=== PATIENT | male | born 1955 | race Caucasian/White ===

== ENCOUNTER → 2017-02-05 | Outpatient (CLI) | payer OTHER ==
[~2017-02-05] MED LIST: ASPI325T4 PO; ATOR20TA PO; CARV6.252 PO; HYDR25TA6 PO; INSU100V8 SQ; LIRA0.6P SQ; METF10002 PO; OMEP-110 PO; PIOG15TA9 PO; QUIN40TA7 PO; TERA1CAP3 PO
== END | disposition home or self-care (01) ==
LOC: CFH 08:54
PROVIDERS: ATTEND Internal Medicine Endocrinology, Diabetes & Metabolism
DX: E04.1 Nontoxic single thyroid nodule (principal)
CPT/HCPCS: 76536

== ENCOUNTER → 2017-04-12 | Outpatient (CLI) | payer OTHER | END | disposition home or self-care (01) | LOC: PETCFH 09:19 | PROVIDERS: ATTEND Internal Medicine Critical Care Medicine | DX: C41.9 Malignant neoplasm of bone and articular cartilage, unspecified (principal); K57.30 Diverticulosis of large intestine without perforation or abscess without bleeding; I25.10 Atherosclerotic heart disease of native coronary artery without angina pectoris; Z98.890 Other specified postprocedural states | CPT/HCPCS: 78815; A9552 ==

== ENCOUNTER → 2017-05-02 | Outpatient (CLI) | payer OTHER ==
[~2017-05-02] MED LIST changes: +ASPI325T17 PO; -ASPI325T4 PO; +PIOG15TA22 PO; -PIOG15TA9 PO
== END | disposition home or self-care (01) ==
LOC: CVU 14:40
PROVIDERS: ATTEND Internal Medicine Critical Care Medicine
DX: I11.0 Hypertensive heart disease with heart failure (principal); I50.30 Unspecified diastolic (congestive) heart failure; C05.9 Malignant neoplasm of palate, unspecified; Z92.21 Personal history of antineoplastic chemotherapy
CPT/HCPCS: C8929

== ENCOUNTER 2018-07-24 13:42 | Day surgery (SDC) | payer OTHER ==
[~2018-07-24] VITALS: Ht 188 cm; Wt 120.1 kg
[~2018-07-24 13:42] MED LIST changes: +QUIN40TA15 PO; -QUIN40TA7 PO
[2018-07-24] MEDS ORDERED: LACTATED RINGERS 1,000 ML IV SCH (14:06)
[2018-07-24 14:10] VITALS: BP 143/78
[2018-07-24] MEDS ORDERED: PROPOFOL 10 MG/ML, 20ML ONE (14:24)
[2018-07-24] MEDS ORDERED: FENTANYL PF 100 MCG/2ML IV PRN (14:30)
[2018-07-24] MEDS ORDERED: LABETALOL 5MG/ML, 20ML IV PRN (14:30)
[2018-07-24] MEDS ORDERED: KETOROLAC 30 MG/1 ML IV PRN (14:30)
[2018-07-24] MEDS ORDERED: hydrALAzine 20 MG/ML, 1ML IV PRN (14:30)
[2018-07-24] MEDS ORDERED: ACETAMINOPHEN 325 MG TABLET PO PRN (14:30)
[2018-07-24] MEDS ORDERED: METOCLOPRAMIDE 5 MG/ML, 2ML IV PRN (14:30)
[2018-07-24] MEDS ORDERED: DIAZEPAM 5 MG/ML, 2ML IVPush PRN (14:30)
[2018-07-24 14:33] VITALS: BP 143/78
[2018-07-24] MEDS ORDERED: OFLOXACIN EAR DROPS 0.3%, 5ML ONE (14:44)
[2018-07-24 14:54] LABS: ALANINE AMINOTRANSFERASE 27 U/L (12-78); ALBUMIN 4.1 g/dL (3.4-5.0); ANION GAP 8 mmol/L (5-15); CALCIUM 8.4 mg/dL (8.5-10.1); CHLORIDE 101 mmol/L (98-107); CREATININE 1.08 mg/dL (0.7-1.3)
[2018-07-24 14:56] LABS: ALKALINE PHOSPHATASE 61 U/L (45-117); BILIRUBIN,TOTAL 0.6 mg/dL (0.2-1.0); TOTAL PROTEIN 7.5 g/dL (6.4-8.2)
== END 2018-07-24 16:30 | disposition home or self-care (01) ==
LOC: OUT 13:42
PROVIDERS: ATTEND Otolaryngology
DX: H65.92 Unspecified nonsuppurative otitis media, left ear (principal); I25.10 Atherosclerotic heart disease of native coronary artery without angina pectoris; I11.0 Hypertensive heart disease with heart failure; I50.9 Heart failure, unspecified; E11.9 Type 2 diabetes mellitus without complications; J45.909 Unspecified asthma, uncomplicated; E78.5 Hyperlipidemia, unspecified; Z85.830 Personal history of malignant neoplasm of bone; Z79.899 Other long term (current) drug therapy; Z79.82 Long term (current) use of aspirin; Z79.4 Long term (current) use of insulin
CPT/HCPCS: 36415; 69436; 80053; 82962; 93005; J2704

== ENCOUNTER 2019-10-06 11:35 | Day surgery (SDC) | payer OTHER ==
[~2019-10-06] VITALS: Ht 188 cm; Wt 124.5 kg
[2019-10-06] MEDS ORDERED: LACTATED RINGERS 1,000 ML IV SCH (12:03)
[2019-10-06 12:07] VITALS: BP 184/86
[2019-10-06] MEDS ORDERED: OFLOXACIN OPHTH 0.3%, 5ML ONE (12:23)
[2019-10-06 12:45] LABS: ALANINE AMINOTRANSFERASE 21 U/L (12-78); ALBUMIN 3.9 g/dL (3.4-5.0); ANION GAP 4 mmol/L (5-15); CALCIUM 8.7 mg/dL (8.5-10.1); CHLORIDE 109 mmol/L (98-107); CREATININE 0.96 mg/dL (0.7-1.3)
[2019-10-06 12:48] LABS: ALKALINE PHOSPHATASE 52 U/L (45-117); BILIRUBIN,TOTAL 0.7 mg/dL (0.2-1.0); TOTAL PROTEIN 7.1 g/dL (6.4-8.2)
[2019-10-06] MEDS ORDERED: PROPOFOL 10 MG/ML, 20ML ONE (13:18)
== END 2019-10-06 14:50 | disposition home or self-care (01) ==
LOC: OUT 11:35
PROVIDERS: ATTEND Otolaryngology
DX: H66.12 Chronic tubotympanic suppurative otitis media, left ear (principal); H90.12 Conductive hearing loss, unilateral, left ear, with unrestricted hearing on the contralateral side; Z79.899 Other long term (current) drug therapy; Z88.0 Allergy status to penicillin
CPT/HCPCS: 36415; 69436; 80053; 82962; 93005; J2704; J7120

== ENCOUNTER 2019-12-30 17:01 | Inpatient (IN) | payer OTHER ==
[~2019-12-30] VITALS: Ht 188 cm; Wt 123.5 kg
[2019-12-30] MEDS ORDERED: HYDROmorphone 1 MG/ML, 1ML INJ ONE ×2 (17:11→17:50)
[2019-12-30] MEDS ORDERED: ONDANSETRON 2MG/ML, 2ML ONE ×2 (17:15→19:30)
[2019-12-30 17:26] LABS: BASOPHILS # (AUTO) 0.03 x10^3/uL (0-0.1); BASOPHILS % (AUTO) 1 % (0-1); EOSINOPHILS # (AUTO) 0.16 x10^3/uL (0-0.4); EOSINOPHILS % (AUTO) 2 % (1-7); LYMPHOCYTES # (AUTO) 1.41 x10^3/uL (1-3.4); LYMPHOCYTES % (AUTO) 20 % (22-44); MD NO; MEAN CORPUSCULAR HEMOGLOBIN 32.2 pg (27.5-34.5); MEAN CORPUSCULAR HGB CONC 33.6 g/dL (33.2-36.2); MEAN CORPUSCULAR VOLUME 95.8 fL (81-97); MONOCYTES # (AUTO) 0.59 x10^3/uL (0.2-0.8); MONOCYTES % (AUTO) 8 % (2-9); NEUTROPHILS # (AUTO) 4.92 x10^3/uL (1.8-6.8); NEUTROPHILS % (AUTO) 69 % (42-75); PLATELET COUNT 201 x10^3/uL (130-400); RED BLOOD COUNT 3.97 x10^6/uL (4.38-5.82); RED CELL DISTRIBUTION WIDTH 13.7 % (9.4-14.8)
[2019-12-30] MEDS ORDERED: ONDANSETRON 2MG/ML, 2ML IVPush ONE ×2 (17:30→19:00)
[2019-12-30] MEDS ORDERED: SODIUM CHLORIDE FLUSH 10ML SYR IVF ONE (17:30)
[2019-12-30] MEDS ORDERED: PLEASE ENTER HEIGHT AND WEIGHT MC SCH (17:30)
--- NOTE | 2019-12-30 17:34 | NUR ---
Bib by Naomi from home after unwitnessed glf resulting in right lateral chest pain/right brow laceration Ems placed c-collar, piv and administered 100mcg of fentanyl with minimal relief On arrival sweating/groaning in pain. Medicated immediately VSS, no gross deficits -loc, - blood thinner
[2019-12-30 17:37] LABS: INTERNATIONAL NORMALIZED RATIO 0.99 (0.93-1.1); PROTHROMBIN TIME 10.5 Seconds (9.6-11.5)
[2019-12-30 17:39] LABS: ALANINE AMINOTRANSFERASE 28 U/L (12-78); ALBUMIN 3.9 g/dL (3.4-5.0); ANION GAP 5 mmol/L (5-15); CALCIUM 8.6 mg/dL (8.5-10.1); CHLORIDE 102 mmol/L (98-107); CREATININE 1.08 mg/dL (0.7-1.3)
[2019-12-30 17:42] LABS: ALKALINE PHOSPHATASE 49 U/L (45-117); BILIRUBIN,TOTAL 0.5 mg/dL (0.2-1.0); TOTAL PROTEIN 6.9 g/dL (6.4-8.2)
--- NOTE | 2019-12-30 17:54 | NUR ---
To ct scan at 1754 Ice placed on expanding right brow hematoma
[2019-12-30] MEDS: HYDROmorphone 1 MG/ML, 1ML INJ IVPush PRN ×2 (17:56→17:58)
--- NOTE | 2019-12-30 18:19 | NUR ---
BACK FROM CT SCAN REMAINS WITH NO NEURO DEFICITS REMAINS IN C COLLAR PAIN IMPROVED TO 2/10 VSS ON 4L NC
[2019-12-30] MEDS ORDERED: OMNIPAQUE 350 MG/ML, 100ML BOTTLE ONE (18:28)
--- NOTE | 2019-12-30 18:50 | NUR ---
ER PROVIDER TO BEDSIDE: C-COLLAR REMOVED, UPDATED PATIENT/FAMILY ON ESTIMATED POC: TO ADMIT FOR PAIN CONTROL VSS ON EDGE FINISHER (4L NC->NARCOTICS?) REPORT TO GEORGIA VALVERDE
[2019-12-30] MEDS ORDERED: HYDROmorphone 2 MG/ML, 1ML IVPush PRN (19:00)
--- NOTE | 2019-12-30 19:27 | NUR ---
Report received from ABRAM Ocampo. This RN to assume care. CT results returned. Awaiting suture procedure.
[2019-12-30] MEDS ORDERED: L.E.T SOLUTION TP ONE ×2 (19:47→20:00)
[2019-12-30] MEDS ORDERED: MORPHINE SULFATE 4 MG/ML, 1ML ONE (19:53)
[2019-12-30] MEDS ORDERED: MORPHINE SULFATE 4 MG/ML, 1ML IVPush ONE (20:00)
[2019-12-30] MEDS ORDERED: DIAZEPAM 5 MG/ML, 2ML IV ONE (21:00)
[2019-12-30] MEDS: QUINAPRIL 20MG TABLET PO SCH (21:00)
[2019-12-30] MEDS: CARVEDILOL 6.25 MG TABLET PO SCH (21:00)
[2019-12-30] MEDS ORDERED: ATORVASTATIN 20 MG TABLET PO SCH (21:00)
[2019-12-30] MEDS ORDERED: BISACODYL 10 MG SUPP PR PRN (21:30)
[2019-12-30] MEDS ORDERED: ACETAMINOPHEN 325 MG TABLET PO PRN (21:30)
[2019-12-30] MEDS ORDERED: morphine SULFATE 10 MG/ML, 1ML IVPush PRN (21:30)
[2019-12-30] MEDS ORDERED: METHOCARBAMOL 500 MG TABLET PO PRN (21:30)
[2019-12-30] MEDS ORDERED: POLYETHYLENE GLYCOL 17 GM PACKET PO PRN (21:30)
[2019-12-30] MEDS ORDERED: DIAZEPAM 5 MG/ML, 2ML ONE (21:40)
--- NOTE | 2019-12-30 23:00 | NUR ---
Report was given to ABRAM Gibson and patient to be transferred to room 360. When tech prepared patient for transport, family and patient stated they did not want to be admitted any longer. Advised patient and family that patient's SPO2 drops to 84-88% on RA. Patient is not on home O2. Family is in healthcare; is a NICU nurse and elen is a PA. They stated they are capable of caring for patient further at home with controlling his pain. They also state they are able to get ahold of an oxygen concentrator for patient to have home O2. Patient and family decided that is the best option for patient. Advised Dagoberto, hospital provider of their decision. He states he does not feel patient is a safe discharge and they can sign out AMA. Patient and family state they do not want to sign out AMA because their insurance will not cover the visit. Dagoberto spoke with patient and family explaining the situation. Patient and family requested rooming house operator. Candace rooming house operator aware and to talk to patient and family.
--- NOTE | 2019-12-31 00:06 | NUR ---
mud analysis supervisor, Candace, here to talk to patient and family.
[2019-12-31] MEDS ORDERED: ONDANSETRON 2MG/ML, 2ML ONE (00:36)
[2019-12-31] MEDS: ONDANSETRON 2MG/ML, 2ML IVPush PRN ×2 (00:40→06:37)
--- NOTE | 2019-12-31 00:51 | NUR ---
battery charger: went in with dr lira to have convo with pt. pt/family decided to stay. Password will be [place] for Miranda and daughter Deb to call and get updates. POC discussed with and pt/family agree to stay. Pt stated to not get any diabetic meds as he will "bottom out". will alert primary rn.
--- NOTE | 2019-12-31 00:59 | NUR ---
Report given to ABRAM Casanova. Patient to be transferred to room 348.
[2019-12-31] MEDS ORDERED: MORPHINE SULFATE 4 MG/ML, 1ML ONE (01:01)
--- NOTE | 2019-12-31 01:05 | NUR ---
Patient c/o pain prior to transport to the floor. Medicated patient per prn orders.
[2019-12-31 01:20] VITALS: BP 150/76
[2019-12-31] MEDS: SODIUM CHLORIDE 0.9% 1,000 ML IV SCH ×2 (02:33→10:45)
[2019-12-31 05:44] LABS: BASOPHILS % (AUTO) 0 % (0-1); EOSINOPHILS % (AUTO) 0 % (1-7); LYMPHOCYTES # (AUTO) 0.67 x10^3/uL (1-3.4); LYMPHOCYTES % (AUTO) 8 % (22-44); MD NO; MEAN CORPUSCULAR HGB CONC 33.5 g/dL (33.2-36.2); MEAN CORPUSCULAR VOLUME 95.6 fL (81-97); MEAN PLATELET VOLUME 8.6 fL (7.4-10.4); MONOCYTES # (AUTO) 0.66 x10^3/uL (0.2-0.8); MONOCYTES % (AUTO) 8 % (2-9); NEUTROPHILS # (AUTO) 7.05 x10^3/uL (1.8-6.8); NEUTROPHILS % (AUTO) 84 % (42-75); PLATELET COUNT 186 x10^3/uL (130-400); RED BLOOD COUNT 3.76 x10^6/uL (4.38-5.82); RED CELL DISTRIBUTION WIDTH 13.9 % (9.4-14.8)
[2019-12-31 05:47] LABS: ANION GAP 8 mmol/L (5-15); CALCIUM 8.3 mg/dL (8.5-10.1); CHLORIDE 102 mmol/L (98-107); CREATININE 0.95 mg/dL (0.7-1.3)
[2019-12-31 07:00] VITALS: BP 148/68
[2019-12-31] MEDS ORDERED: OMEPRAZOLE 20 MG CAPSULE.DR PO SCH (09:00)
[2019-12-31] MEDS ORDERED: TERAZOSIN 1MG CAPSULE PO SCH (09:00)
[2019-12-31] MEDS ORDERED: PROMETHAZINE 25 MG/ML, 1ML IM PRN (09:00)
[2019-12-31] MEDS ORDERED: SENNA/DOCUSATE TABLET PO SCH (09:00)
[2019-12-31] MEDS: CARVEDILOL 6.25 MG TABLET PO SCH (09:01)
[2019-12-31 09:02] VITALS: BP 161/69
[2019-12-31] MEDS: QUINAPRIL 20MG TABLET PO SCH (09:34)
[2019-12-31] MEDS ORDERED: GADOTERATE 10 MMOL/20 ML VIAL ONE (10:22)
[2019-12-31] MEDS ORDERED: METH500T7 PO (11:22)
[2019-12-31] MEDS ORDERED: ONDA4TAB13 SL (11:22)
== END 2019-12-31 13:00 | disposition home or self-care (01) | DRG 644 ==
LOC: ED 18:09 → EDIP 20:41 → 3N 12-31 01:20
PROVIDERS: ADMIT Internal Medicine; ATTEND Family Medicine
DX: S37.812A Contusion of adrenal gland, initial encounter (principal); E87.1 Hypo-osmolality and hyponatremia; D64.9 Anemia, unspecified; E04.1 Nontoxic single thyroid nodule; W18.39XA Other fall on same level, initial encounter; E11.65 Type 2 diabetes mellitus with hyperglycemia; E27.9 Disorder of adrenal gland, unspecified; E78.5 Hyperlipidemia, unspecified; G89.11 Acute pain due to trauma; H70.12 Chronic mastoiditis, left ear; S00.11XA Contusion of right eyelid and periocular area, initial encounter; I10 Essential (primary) hypertension; J45.909 Unspecified asthma, uncomplicated; Z79.4 Long term (current) use of insulin; Z82.49 Family history of ischemic heart disease and other diseases of the circulatory system; Z85.830 Personal history of malignant neoplasm of bone; Z86.73 Personal history of transient ischemic attack (TIA), and cerebral infarction without residual deficits; Y93.89 Activity, other specified; Y92.098 Other place in other non-institutional residence as the place of occurrence of the external cause; Y99.8 Other external cause status; Z79.899 Other long term (current) drug therapy; Z88.0 Allergy status to penicillin
CPT/HCPCS: 36415; 70450; 71045; 71250; 72125; 74177; 74183; 80048; 80053; 82962; 83036; 85025; 85610; 93005; 96374; 96375; J1170; J2405; J2550; J3360; Q9967; A9575; J2270; J7030

== ENCOUNTER → 2020-01-05 | Outpatient (CLI) | payer OTHER ==
[~2020-01-05] MED LIST changes: +METH500T7 PO; +ONDA4TAB13 SL
== END | disposition home or self-care (01) ==
LOC: CVU 13:34
PROVIDERS: ATTEND Internal Medicine Cardiovascular Disease
DX: I36.1 Nonrheumatic tricuspid (valve) insufficiency (principal); I11.9 Hypertensive heart disease without heart failure
CPT/HCPCS: 93306

== ENCOUNTER → 2020-01-22 | Outpatient (CLI) | payer OTHER ==
[2020-01-22 08:51] LABS: MEAN CORPUSCULAR HGB CONC 33.7 g/dL (33.2-36.2); MEAN CORPUSCULAR VOLUME 95.1 fL (81-97); MEAN PLATELET VOLUME 7.7 fL (7.4-10.4); PLATELET COUNT 195 x10^3/uL (130-400); RED BLOOD COUNT 4.04 x10^6/uL (4.38-5.82); RED CELL DISTRIBUTION WIDTH 13.5 % (9.4-14.8)
[2020-01-22 09:02] LABS: ALANINE AMINOTRANSFERASE 21 U/L (12-78); ALBUMIN 3.6 g/dL (3.4-5.0); ANION GAP 8 mmol/L (5-15); CALCIUM 8.5 mg/dL (8.5-10.1); CHLORIDE 105 mmol/L (98-107); CHOLESTEROL, TOTAL 150 mg/dL (140-239); CREATININE 0.89 mg/dL (0.7-1.3)
[2020-01-22 09:13] LABS: ALKALINE PHOSPHATASE 80 U/L (45-117); BILIRUBIN,TOTAL 0.6 mg/dL (0.2-1.0); CHOL/HDL RATIO 4.4; HDL CHOL % 23 % (26-37); HDL CHOLESTEROL (DIRECT) 34 mg/dL (40-60); LDL CHOLESTEROL,CALCULATED 97 mg/dL (54-169); LDL/HDL RATIO 2.9 (0.5-3.0); TOTAL PROTEIN 6.7 g/dL (6.4-8.2); TRIGLYCERIDES 93 mg/dL (50-200); VLDL CHOLESTEROL 19 mg/dL (0-25)
== END | disposition home or self-care (01) ==
LOC: LAB 07:59
PROVIDERS: ATTEND Internal Medicine Cardiovascular Disease
DX: I10 Essential (primary) hypertension (principal); E11.9 Type 2 diabetes mellitus without complications; E27.8 Other specified disorders of adrenal gland; E07.9 Disorder of thyroid, unspecified; E78.5 Hyperlipidemia, unspecified
CPT/HCPCS: 36415; 80053; 80061; 82024; 82088; 82306; 82533; 83036; 83835; 84244; 84443; 85027

== ENCOUNTER → 2020-09-01 | Outpatient (CLI) | payer OTHER ==
[2020-09-01 08:40] LABS: ALANINE AMINOTRANSFERASE 24 U/L (12-78); ALBUMIN 3.9 g/dL (3.4-5.0); CHLORIDE 104 mmol/L (98-107); CHOLESTEROL, TOTAL 153 mg/dL (140-239); CREATININE 1.02 mg/dL (0.7-1.3); TRIGLYCERIDES 117 mg/dL (50-200); VLDL CHOLESTEROL 23 mg/dL (0-25)
[2020-09-01 08:51] LABS: ALKALINE PHOSPHATASE 59 U/L (45-117); BILIRUBIN,TOTAL 0.5 mg/dL (0.2-1.0); CHOL/HDL RATIO 3.9; HDL CHOL % 25 % (26-37); HDL CHOLESTEROL (DIRECT) 39 mg/dL (40-60); LDL CHOLESTEROL,CALCULATED 91 mg/dL (54-169); LDL/HDL RATIO 2.3 (0.5-3.0); TOTAL PROTEIN 7.1 g/dL (6.4-8.2)
[2020-09-01 08:53] LABS: ANION GAP 3 mmol/L (5-15)
== END | disposition home or self-care (01) ==
LOC: LAB 08:07
PROVIDERS: ATTEND Internal Medicine Endocrinology, Diabetes & Metabolism
DX: E11.9 Type 2 diabetes mellitus without complications (principal); E27.8 Other specified disorders of adrenal gland
CPT/HCPCS: 36415; 80053; 80061; 82043; 82570; 83036; 84443

== ENCOUNTER → 2020-12-20 | Outpatient (CLI) | payer OTHER ==
[~2020-12-20] MED LIST changes: +METH-639 PO; -METH500T7 PO
[2020-12-20 07:44] LABS: ALANINE AMINOTRANSFERASE 26 U/L (12-78); ANION GAP 6 mmol/L (5-15); CALCIUM 8.6 mg/dL (8.5-10.1); CHLORIDE 104 mmol/L (98-107); CREATININE 1.09 mg/dL (0.7-1.3)
[2020-12-20 07:55] LABS: ALKALINE PHOSPHATASE 56 U/L (45-117); BILIRUBIN,TOTAL 0.5 mg/dL (0.2-1.0); CHOL/HDL RATIO 3.9; CHOLESTEROL, TOTAL 144 mg/dL (140-239); HDL CHOL % 26 % (26-37); HDL CHOLESTEROL (DIRECT) 37 mg/dL (40-60); LDL CHOLESTEROL,CALCULATED 83 mg/dL (54-169); LDL/HDL RATIO 2.2 (0.5-3.0); TOTAL PROTEIN 7.4 g/dL (6.4-8.2); TRIGLYCERIDES 120 mg/dL (50-200); VLDL CHOLESTEROL 24 mg/dL (0-25)
== END | disposition home or self-care (01) ==
LOC: LAB 07:11
PROVIDERS: ATTEND Internal Medicine Cardiovascular Disease
DX: C41.9 Malignant neoplasm of bone and articular cartilage, unspecified (principal); D44.10 Neoplasm of uncertain behavior of unspecified adrenal gland; B97.89 Other viral agents as the cause of diseases classified elsewhere; E07.9 Disorder of thyroid, unspecified; E11.649 Type 2 diabetes mellitus with hypoglycemia without coma; E11.65 Type 2 diabetes mellitus with hyperglycemia; E27.8 Other specified disorders of adrenal gland; E78.5 Hyperlipidemia, unspecified
CPT/HCPCS: 36415; 80053; 80061; 82043; 82570; 83036; 84443